=== PATIENT | male | born 1980 | race African-American/Black ===

== ENCOUNTER 2024-06-02 19:40 | Emergency (ER) | payer OTHER ==
[~2024-06-02] VITALS: Ht 190.5 cm; Wt 112.8 kg
[2024-06-02 19:47] VITALS: BP 120/71; PULSE 80; RESP 17; O2SAT 96
[2024-06-03] MEDS ORDERED: ACET500T58 PO (00:14)
[2024-06-03] MEDS ORDERED: CLIN1CAP70 PO (00:14)
[2024-06-03] MEDS: LIDOCAINE 1% HCL (LOCAL ANESTH.) INJ 20ML MDV ID ONE (00:22)
[2024-06-03] MEDS: TETANUS-DIPTH-ACEL PERTUSSIS 0.5ML SYR Tdap IM ONE (00:23)
[2024-06-03] MEDS: cefTRIAXone SOD 1,000 MG VL IM ONE (00:23)
== END 2024-06-03 00:54 | disposition home or self-care (01) ==
LOC: ER 19:40
DX: L02.811 Cutaneous abscess of head [any part, except face] (principal)
CPT/HCPCS: 10060; 90471; 90715; 96372; 99284; J0696; J2001

== ENCOUNTER 2024-06-05 14:56 | Emergency (ER) | payer OTHER ==
[~2024-06-05] VITALS: Ht 190.5 cm; Wt 111.3 kg
[~2024-06-05 14:56] MED LIST: ACET500T58 PO; CLIN1CAP70 PO
[2024-06-05 17:24] VITALS: BP 137/76; PULSE 91; RESP 16; TEMP 98.3; O2SAT 98
[2024-06-05] MEDS: cefTRIAXone SOD 1,000 MG VL IM ONE (17:29)
[2024-06-05] MEDS: KETOROLAC TROMETH 60MG/2ML VIAL IM ONE (17:29)
[2024-06-05] MEDS ORDERED: IBUP-1456 PO (17:31)
[2024-06-05] MEDS ORDERED: CEPH500C PO (17:31)
== END 2024-06-05 17:44 | disposition home or self-care (01) ==
LOC: ER 14:56
DX: L08.89 Other specified local infections of the skin and subcutaneous tissue (principal); Z48.00 Encounter for change or removal of nonsurgical wound dressing; Z98.890 Other specified postprocedural states; Z79.899 Other long term (current) drug therapy
CPT/HCPCS: 96372; 99284; J0696; J1885